=== PATIENT | male | born 1965 | race Caucasian/White ===

== ENCOUNTER 2023-09-23 22:06 | Emergency (ER) | payer OTHER ==
[~2023-09-23] VITALS: Ht 175.3 cm; Wt 86.2 kg
[2023-09-23 22:13] VITALS: O2SAT 100
[2023-09-23] MEDS ORDERED: TETANUS/DIPHTHERIA TOX ADULT 0.5 ML SYR ONE (22:14)
[2023-09-23] MEDS ORDERED: HYDROCODONE/APAP 5MG-325MG TAB PO ONE (22:15)
[2023-09-23] MEDS ORDERED: LIDOCAINE 1% W/EPINEPHRINE 20 ML VIAL ONE (22:24)
[2023-09-23] MEDS ORDERED: SODIUM CHLORIDE 0.9% 100 ML ONE (22:31)
[2023-09-23] MEDS: TRANEXAMIC ACID 1,000 MG/10 ML ML INJ STA (22:33)
[2023-09-23] MEDS: TETANUS/DIPHTHERIA TOX ADULT 0.5 ML SYR IM ONE (22:42)
[2023-09-23] MEDS: HYDROCODONE/APAP 5MG-325MG TAB PO ONE (22:45)
== END 2023-09-23 23:27 | disposition other institution (70) ==
LOC: ER 22:14
DX: S61.412A Laceration without foreign body of left hand, initial encounter (principal); S66.328A Laceration of extensor muscle, fascia and tendon of other finger at wrist and hand level, initial encounter; W27.8XXA Contact with other nonpowered hand tool, initial encounter; J44.9 Chronic obstructive pulmonary disease, unspecified; F17.210 Nicotine dependence, cigarettes, uncomplicated
CPT/HCPCS: 73130; 90471; 90714; 99284; J0690; J7050